=== PATIENT | male | born 1970 | race Caucasian/White ===

== ENCOUNTER 2017-08-22 09:37 | Inpatient (IN) | payer BC ==
--- NOTE | 2017-08-22 10:02 | ED PDOC ---
HPI:STROKE - Time Time: 10:01 - Historian Historian: Patient - Chief Complaint Chief Complaint: Numbness - Onset Date: 08/22/17 Time: 02:00 - Timing Timing: Currently Symptomatic - TPA Positive for Contraindication: Yes Reason tPA is not being Administered: out of window of thrombolytics and nih 0 - Notes: Notes:: Pt. with left forearm and hand numbness and tinlges and same in the left face. No weakness. No leg issues. No speech issues. No headache or dizziness. No nausea, vomit. No right issues. No chest pain or dyspnea. No pcp. States it was present when he woke up today at 615am. Last known well was 2am. NIHSS Stroke Scale - Date/Time Evaluation Performed Date Performed: 08/22/17 Time Performed: 10:00 When Was NIHSS Performed: Baseline - How Severe is the Stroke Level of Consciousness: 0=Alert LOC to Questions: 0=Both comments correct LOC to commands: 0=Obeys both correctly Best Gaze: 0=Normal Visual: 0=No visual loss Facial: 0=Normal Motor Arm - Left: 0=No drift Motor Arm - Right: 0=No drift Motor Leg - Left: 0=No drift Motor Leg - Right: 0=No drift Limb Ataxia: 0=Absent Sensory: 0=Normal Best Language: 0=No aphasia Dysarthia: 0=Normal articulation Extinction & Inattention (Neglect): 0=Normal, no object Score: 0 rTPA Inclusion/Exclusion - Refusal of Treatment Patient Refused Treatment: No - Inclusion Criteria for Altepase Patient is 18 years or Older: Yes The Clinical Diagnosis of Ischemic Stroke That is Causing a Potentially Disabling Neurological Deficit: No Time of Onset is Well Established to be Less Than 270 Minute Before Treatment Would Begin: No Risk/Benefit Discussed With Patient/Family Member Present: No - Exclusion Criteria for Altepase Uncontrolled Hypertension at Time of Treatment (Systolic BP above 185 or Diastolic BP above 110 mmHg): Yes Past Medical History Reviewed: Nursing Documentation, Vital Signs Vital Signs: Last Vital Signs Temp 97.2 F L 08/22/17 09:47 Pulse 108 H 08/22/17 09:47 Resp 22 08/22/17 09:47 BP 213/134 H 08/22/17 09:47 Pulse Ox 97 08/22/17 09:47 - Medical History PMH: No Chronic Diseases - Surgical History Surgical History: No Surg Hx - Family History Family History: States: Unknown Family Hx - Social History Current smoker - smoking cessation education provided: No Alcohol: None Drugs: Denies - Home Medications Home Medications: Ambulatory Orders Medication Instructions Recorded No Known Home Med 08/22/17 - Allergies Allergies/Adverse Reactions: Allergies Allergy/AdvReac Type Severity Reaction Status Date / Time No Known Allergies Allergy Verified 08/22/17 10:16 Review of Systems ROS Statement: Except As Marked, All Systems Reviewed And Found Negative Neurological: Positive for: Numbness Physical Exam - Reviewed Nursing Documentation Reviewed: Yes Vital Signs Reviewed: Yes - Physical Exam Appears: Positive for: Non-toxic, No Acute Distress Head Exam: Positive for: ATRAUMATIC, NORMAL INSPECTION, NORMOCEPHALIC Skin: Positive for: Normal Color, Warm, DRY Eye Exam: Positive for: EOMI, Normal appearance, PERRL ENT: Positive for: Normal ENT Inspection Neck: Positive for: Normal, Painless ROM Cardiovascular/Chest: Positive for: Regular Rate, Rhythm, Chest Non Tender. Negative for: Edema Respiratory: Positive for: CNT, Normal Breath Sounds Gastrointestinal/Abdominal: Positive for: Normal Exam, Bowel Sounds, Soft. Negative for: Tenderness Back: Positive for: Normal Inspection. Negative for: L CVA Tenderness, R CVA Tenderness Extremity: Positive for: Normal ROM. Negative for: Tenderness, Pedal Edema Neurologic/Psych: Positive for: Alert, high speed warper tender II-XII, Oriented. Negative for: Motor/Sensory Deficits, Aphasia, Facial Droop - Laboratory Results Result Diagrams: 08/22/17 10:21 08/22/17 10:21 Interpretation Of Abn Labs: 387 glucose - ECG ECG Rhythm: Positive for: Normal QRS, Sinus Rhythm, Nonspecific Changes O2 Sat by Pulse Oximetry: 97 Pulse Ox Interpretation: Normal - Radiology X-Ray: Read By Radiologist X-Ray Interpretation: No Acute Disease - CT Scan/US head Other Rad Studies (CT/US): Read By Radiologist Other Rad Interpretation: no acute - Progress ED Course And Treament: 1029: Spoke with Dr. Renner. Pt. not a candidate for thrombolytics. Wants further workup and treatment of bp with labatalol. 1233: Spoke with Dr. Parra. Will admit tele and give further orders when pt. reaches floor. Disposition - Clinical Impression Clinical Impression: CVA (cerebral vascular accident), Hyperglycemia, Hypertensive urgency - Patient ED Disposition Is Patient to be Admitted: Yes Counseled Patient/Family Regarding: Studies Performed, Diagnosis - Disposition Disposition Time: 12:00 Condition: FAIR - Pt Status Changed To: Hospital Disposition Of: Inpatient - Admit Certification Admit to Inpatient:: After my assessment, the patient will require hospitalization for at least two midnights. This is because of the severity of symptoms shown, intensity of services needed, and/or the medical risk in this patient being treated as an outpatient. - POA Present On Arrival: Poor Glycemic Control
[2017-08-22 10:31] LABS: BASO % 0.9 % (0.0-2.0); EOS % 0.8 % (0.0-4.0); HEMATOCRIT 45.3 % (35.0-51.0); LYMPH % 25.4 % (20.0-40.0); MEAN CELL VOLUME 80.6 fl (80.0-94.0); MEAN CORPUSCULAR HEMOGLOBIN 26.1 pg (27.0-31.0); MEAN CORPUSCULAR HGB CONC 32.4 g/dL (33.0-37.0); MEAN PLATELET VOLUME 9.6 fl (7.2-11.7); MONO # 0.4 K/uL (0.0-0.8); MONO % 9.1 % (0.0-10.0); NEUT # 2.5 K/uL (1.8-7.0); NEUT % 63.8 % (50.0-75.0); NRBC % 0.1 % (0.0-0.0); RED CELL DISTRIBUTION WIDTH 15.6 % (11.5-14.5); WHITE BLOOD COUNT 3.9 K/uL (4.8-10.8)
[2017-08-22 10:34] LABS: PARTIAL THROMBOPLASTIN TIME 34.2 Seconds (25.6-37.1)
[2017-08-22 10:45] LABS: ALB/GLOB RATIO 1.4 (1.0-2.1); ALKALINE PHOSPHATASE 98 U/L (38-126); ALT/SGPT 56 U/L (21-72); AST/SGOT 23 U/L (17-59); BILIRUBIN,TOTAL 1.1 mg/dl (0.2-1.3); BLOOD UREA NITROGEN 11 mg/dl (9-20); CALCIUM 9.1 mg/dL (8.4-10.2); CARBON DIOXIDE 27 mmol/L (22-30); CHLORIDE 102 mmol/L (98-107); CHOLESTEROL 219 mg/dL (0-199); GFR AFRICAN-AMERICAN > 60; GLUCOSE,RANDOM 387 mg/dL (75-110); POTASSIUM 3.7 MMOL/L (3.6-5.0); SODIUM 141 mmol/l (132-148); TOTAL PROTEIN 7.8 G/DL (6.3-8.2)
--- NOTE | 2017-08-22 10:57 | CT ---
PROCEDURE: CT HEAD WITHOUT CONTRAST. HISTORY: code stroke COMPARISON: None available. TECHNIQUE: Axial computed tomography images were obtained through the head/brain without intravenous contrast. Radiation dose: Total exam DLP = 772.4 mGy-cm. This CT exam was performed using one or more of the following dose reduction techniques: Automated exposure control, adjustment of the mA and/or kV according to patient size, and/or use of iterative reconstruction technique. FINDINGS: HEMORRHAGE: No intracranial hemorrhage. BRAIN: No mass effect or edema. No atrophy or chronic microvascular ischemic changes. VENTRICLES: Unremarkable. No hydrocephalus. CALVARIUM: Unremarkable. PARANASAL SINUSES: Unremarkable as visualized. No significant inflammatory changes. MASTOID AIR CELLS: Unremarkable as visualized. No inflammatory changes. OTHER FINDINGS: None. IMPRESSION: Normal CT of the Head. Findings conveyed to Dr. Hooks by Dr. Phillips at 10:53 a.m. on 08/22/2017.
[2017-08-22] MEDS ORDERED: Labetalol 5 mg/ml Inj 20ML IVP ONE (11:10)
--- NOTE | 2017-08-22 11:28 | RAD ---
HISTORY: stroke eval COMPARISON: Chest radiograph dated 06/23/2011. FINDINGS: LUNGS: Prominence of pulmonary vasculature may be secondary to AP technique and/or pulmonary vascular congestion. No focal consolidation. PLEURA: No significant pleural effusion identified, no pneumothorax apparent. CARDIOVASCULAR: Cardiac silhouette appears prominent, but this cannot be accurately assessed on an AP projection. OSSEOUS STRUCTURES: No significant abnormalities. VISUALIZED UPPER ABDOMEN: Normal. OTHER FINDINGS: None. IMPRESSION: Prominence of the pulmonary vasculature may be secondary to AP technique and/or pulmonary vascular congestion. No focal consolidation or pleural effusion.
[2017-08-22] MEDS ORDERED: Labetalol 5 mg/ml Inj 20ML IVP STA (12:34)
[2017-08-22] MEDS ORDERED: Pneumococcal 23-Valent Vaccine IM ONE (15:44)
[2017-08-22] MEDS ORDERED: Enoxaparin 40 mg Syringe SC SCH (21:00)
--- NOTE | 2017-08-22 22:00 | CP.PCM.CON ---
History of Present Illness - History of Present Illness History of Present Illness: - Chief Complaint Chief Complaint: Sensory Changes in the left side of the Face and in the Left Forearm - Onset Date: 08/22/17 Time: 02:00 - Timing Timing: Currently Symptomatic - TPA Positive for Contraindication: Yes Reason TPA is not being Administered: out of window of TPA - Notes: Notes:: Pt. with left forearm and hand numbness and tingling and same in the left face. No weakness. No leg issues. No speech issues. No headache or dizziness. No nausea, vomit. No right issues. No chest pain or dyspnea. History of feeling tired and having mild discomfort in his head, mild headache on and off since 3 months. No pcp. States it was present when he woke up today at 615am. Last known well was 2am. 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 He has a child 27 years old and is unmarried NIHSS Stroke Scale score is Zero - Date/Time Evaluation Performed Date Performed: 08/22/17 Time Performed: 10:00 When Was NIHSS Performed: Baseline - How Severe is the Stroke Level of Consciousness: 0=Alert LOC to Questions: 0=Both comments correct LOC to commands: 0=Obeys both correctly Best Gaze: 0=Normal Visual: 0=No visual loss Facial: 0=Normal Motor Arm - Left: 0=No drift Motor Arm - Right: 0=No drift Motor Leg - Left: 0=No drift Motor Leg - Right: 0=No drift Limb Ataxia: 0=Absent Sensory: 0=Normal Best Language: 0=No aphasia Dysarthia: 0=Normal articulation Extinction & Inattention (Neglect): 0=Normal, no object Score: 0 rTPA Inclusion/Exclusion - Refusal of Treatment Patient Refused Treatment: No - Inclusion Criteria for Altepase Patient is 18 years or Older: Yes The Clinical Diagnosis of Ischemic Stroke That is Causing a Potentially Disabling Neurological Deficit: No Time of Onset is Well Established to be Less Than 270 Minute Before Treatment Would Begin: No Risk/Benefit Discussed With Patient/Family Member Present: No - Exclusion Criteria for Altepase Uncontrolled Hypertension at Time of Treatment (Systolic BP above 185 or Diastolic BP above 110 mmHg): Yes Past Medical History Reviewed: Nursing Documentation, Vital Signs Vital Signs: Last Vital Signs Temp 97.2 F L 08/22/17 09:47 Pulse 108 H 08/22/17 09:47 Resp 22 08/22/17 09:47 BP 213/134 H 08/22/17 09:47 Pulse Ox 97 08/22/17 09:47 - Medical History PMH: No Chronic Diseases - Surgical History Surgical History: No Surg Hx - Family History Family History: States: Unknown Family Hx - Social History Current smoker - smoking cessation education provided: No Alcohol: None Drugs: Denies - Home Medications Home Medications: Ambulatory Orders Medication Instructions Recorded No Known Home Med 08/22/17 - Allergies Allergies/Adverse Reactions: Allergies Allergy/AdvReac Type Severity Reaction Status Date / Time No Known Allergies Allergy Verified 08/22/17 10:16 Review of Systems ROS Statement: Except As Marked, All Systems Reviewed And Found Negative Neurological: Positive for: Numbness Physical Exam - Reviewed Nursing Documentation Reviewed: Yes Vital Signs Reviewed: Yes - Physical Exam Appears: Positive for: Non-toxic, No Acute Distress Head Exam: Positive for: ATRAUMATIC, NORMAL INSPECTION, NORMOCEPHALIC Skin: Positive for: Normal Color, Warm, DRY Eye Exam: Positive for: EOMI, Normal appearance, PERRL ENT: Positive for: Normal ENT Inspection Neck: Positive for: Normal, Painless ROM Cardiovascular/Chest: Positive for: Regular Rate, Rhythm, Chest Non Tender. Negative for: Edema Respiratory: Positive for: CNT, Normal Breath Sounds Gastrointestinal/Abdominal: Positive for: Normal Exam, Bowel Sounds, Soft. Negative for: Tenderness Back: Positive for: Normal Inspection. Negative for: L CVA Tenderness, R CVA Tenderness Extremity: Positive for: Normal ROM. Negative for: Tenderness, Pedal Edema Neurologic/Psych: Positive for: Alert, sign board erector II-XII, Oriented. Negative for: Motor/Sensory Deficits, Aphasia, Facial Droop - Laboratory Results Interpretation Of Abn Labs: 387 glucose - ECG ECG Rhythm: Positive for: Normal QRS, Sinus Rhythm, Nonspecific Changes O2 Sat by Pulse Oximetry: 97 Pulse Ox Interpretation: Normal - Radiology X-Ray: Read By Radiologist X-Ray Interpretation: No Acute Disease - CT Scan/US head Other Rad Studies (CT/US): Read By Radiologist Other Rad Interpretation: no acute findings - Progress ED Course And Treament: 1029: Spoke with Dr. Renner. Pt. not a candidate for thrombolytics. Wants further workup and treatment of bp with labatalol. 1233: Spoke with Dr. Parra. Will admit telemetry and give further orders when pt. reaches floor. Disposition - Clinical Impression Clinical Impression: CVA (cerebral vascular accident), Hyperglycemia, Hypertensive urgency - Patient ED Disposition Is Patient to be Admitted: Yes Counseled Patient/Family Regarding: Studies Performed, Diagnosis - Disposition Disposition Time: 12:00 Condition: FAIR - Pt Status Changed To: Hospital Disposition Of: Inpatient - Admit Certification Admit to Inpatient:: After my assessment, the patient will require hospitalization for at least two midnights. This is because of the severity of symptoms shown, intensity of services needed, and/or the medical risk in this patient being treated as an outpatient. - POA Present On Arrival: Poor Glycemic Control Past Patient History - Past Medical History & Family History Past Medical History?: Yes - Past Social History Smoking Status: Never Smoked - CARDIAC Hx Cardiac Disorders: Yes Hx Hypertension: Yes (not on meds) - PULMONARY Hx Respiratory Disorders: No - NEUROLOGICAL Hx Neurological Disorder: No - HEENT Hx HEENT Problems: No - RENAL Hx Chronic Kidney Disease: No - ENDOCRINE/METABOLIC Hx Endocrine Disorders: No - HEMATOLOGICAL/ONCOLOGICAL Hx Blood Disorders: No Hx AIDS: No Hx Human Immunodeficiency Virus (HIV): No - INTEGUMENTARY Hx Dermatological Problems: No - MUSCULOSKELETAL/RHEUMATOLOGICAL Hx Musculoskeletal Disorders: No Hx Falls: No - GASTROINTESTINAL Hx Gastrointestinal Disorders: No - GENITOURINARY/GYNECOLOGICAL Hx Genitourinary Disorders: No - PSYCHIATRIC Hx Substance Use: No - SURGICAL HISTORY Hx Surgeries: No - ANESTHESIA Hx Anesthesia: Yes Hx Anesthesia Reactions: No Hx Malignant Hyperthermia: No Has any member of the family had a problem w/ anesthesia?: No Meds Allergies/Adverse Reactions: Allergies Allergy/AdvReac Type Severity Reaction Status Date / Time No Known Allergies Allergy Verified 08/22/17 10:16 - Medications Medications: Current Medications Aspirin (Aspirin Chewable) 81 mg PO DAILY [facility] Atorvastatin Calcium (Lipitor) 40 mg PO DAILY [facility] Chlorthalidone (Hygroton) 25 mg PO DAILY [facility] Enoxaparin Sodium (Lovenox) 40 mg SC DAILY [facility] PRN Reason: Protocol Labetalol HCl (Trandate) 200 mg PO Q6 PRN PRN Reason: Diastolic blood pressure Last Admin: 08/22/17 20:57 Dose: 200 mg Physical Exam - Neurological Exam Additional comments: Mental Status: Normal exam, awake, alert, oriented, normal memory, normal cognition, fluent coherent speech Cranial Nerves II to XII: Normal EOEM Pupils are equal reactive to light No facial Asymmetry Normal swallowing Central Tongue Motor: Normal Tone, power and Muscle bulk DTR 0/4 allover Toes are down going by plantar stimulation Positive straight leg raising test on the Right Sensory: No deficits on the face or the extremities or the rest of the body Cerebellar: Normal FNT Results - Vital Signs Recent Vital Signs: Last Vital Signs Temp 98.5 F 08/22/17 19:57 Pulse 79 08/22/17 20:57 Resp 20 08/22/17 19:57 BP 182/122 H 08/22/17 20:57 Pulse Ox 97 08/22/17 19:57 - Labs Result Diagrams: 08/22/17 10:21 08/22/17 10:21 Labs: Laboratory Results - last 24 hr 08/22/17 08/22/17 08/22/17 10:21 10:21 10:21 WBC 3.9 L RBC 5.62 Hgb 14.7 Hct 45.3 MCV 80.6 MCH 26.1 L MCHC 32.4 L RDW 15.6 H Plt Count 199 MPV 9.6 Neut % (Auto) 63.8 Lymph % (Auto) 25.4 [place] % (Auto) 9.1 Eos % (Auto) 0.8 Baso % (Auto) 0.9 Neut # 2.5 Lymph # 1.0 [place] # 0.4 Eos # 0.0 Baso # 0.0 PT INR APTT Sodium 141 Potassium 3.7 Chloride 102 Carbon Dioxide 27 Anion Gap 16 BUN 11 Creatinine 0.9 Est GFR ( Amer) > 60 Est GFR (Non-Af Amer) > 60 POC Glucose (mg/dL) Random Glucose 387 H Hemoglobin A1c 12.4 H Calcium 9.1 Total Bilirubin 1.1 AST 23 ALT 56 Alkaline Phosphatase 98 Troponin I 0.0290 Total Protein 7.8 Albumin 4.6 Globulin 3.2 Albumin/Globulin Ratio 1.4 Triglycerides 55 Cholesterol 219 H LDL Cholesterol Direct 126 HDL Cholesterol 64 Blood Type Blood Type Confirm Antibody Screen BBK History Checked 08/22/17 08/22/17 08/22/17 10:21 10:21 18:22 WBC RBC Hgb Hct MCV MCH MCHC RDW Plt Count MPV Neut % (Auto) Lymph % (Auto) [place] % (Auto) Eos % (Auto) Baso % (Auto) Neut # Lymph # [place] # Eos # Baso # PT 12.0 INR 1.1 APTT 34.2 Sodium Potassium Chloride Carbon Dioxide Anion Gap BUN Creatinine Est GFR ( Amer) Est GFR (Non-Af Amer) POC Glucose (mg/dL) 284 H Random Glucose Hemoglobin A1c Calcium Total Bilirubin AST ALT Alkaline Phosphatase Troponin I Total Protein Albumin Globulin Albumin/Globulin Ratio Triglycerides Cholesterol LDL Cholesterol Direct HDL Cholesterol Blood Type B POSITIVE Blood Type Confirm Antibody Screen Negative BBK History Checked No verified bt 08/22/17 19:04 WBC RBC Hgb Hct MCV MCH MCHC RDW Plt Count MPV Neut % (Auto) Lymph % (Auto) [place] % (Auto) Eos % (Auto) Baso % (Auto) Neut # Lymph # [place] # Eos # Baso # PT INR APTT Sodium Potassium Chloride Carbon Dioxide Anion Gap BUN Creatinine Est GFR ( Amer) Est GFR (Non-Af Amer) POC Glucose (mg/dL) Random Glucose Hemoglobin A1c Calcium Total Bilirubin AST ALT Alkaline Phosphatase Troponin I Total Protein Albumin Globulin Albumin/Globulin Ratio Triglycerides Cholesterol LDL Cholesterol Direct HDL Cholesterol Blood Type Blood Type Confirm B POSITIVE Antibody Screen BBK History Checked Assessment & Plan (1) CVA (cerebral vascular accident) Assessment and Plan: TIA R/O CVA Headache due to HTN and stress. Headache precautions were explained to him. Unlikely seizures as seizures don't last that long for many hours Status: Acute Comment: R/O TIA (2) Hyperglycemia Assessment and Plan: Needs Control Status: Acute (3) Hypertensive urgency Assessment and Plan: Very high BP might cause his current symptoms and His TIA, with his High Blood sugar. I discussed the treatment with the ER Physician and we agreed to control his BP using Labetolol and to reduce it slowly and gradually. Status: Acute
[2017-08-23 05:39] LABS: THYROID STIMULATING HORMONE 1.57 mIU/ML (0.46-4.68)
[2017-08-23] MEDS ORDERED: Dextrose 50% SYRINGE Inj (50 ml) IV PRN (07:21)
[2017-08-23] MEDS ORDERED: Glucagon Recombinant 1 mg Inj IM PRN (07:21)
--- NOTE | 2017-08-23 07:52 | CARD ---
APPROVED REPORT EKG Measurement Heart [id number] <Conclusion> Sinus tachycardia Possible Left atrial enlargement ST & T wave abnormality, consider lateral ischemia Abnormal ECG
--- NOTE | 2017-08-23 07:56 | CP.PCM.HP ---
History of Present Illness - History of Present Illness History of Present Illness: 47 year old male with no past medical history presented with complaints of left facial tingling and left upper extremity tingling. No motor weakness or arm heaviness. He states he has never had similar episode in the past. No change in diet. Last thing he ate was [employer]. No headache, dizziness, chest pain or tightness,, nausea, vomiting, abdominal pain. He does not take any medications. He has not seen a physician in years. He states he has checked his blood pressure at a friends house recently and admits it was elevated but he did not seek care. He is not physically active and does not do exercise. Patient denies recent illness. This morning the patient reports he still has some tingling. 12 point review of systems otherwise negative. No PMD PMH : none Medications: None Surgical hx: hernia repair as a child Social: denies tobacco, etoh, illicit drugs. Present on Admission - Present on Admission Any Indicators Present on Admission: No History of Uncontrolled Diabetes: No Review of Systems - Constitutional Constitutional: absent: Anorexia, Headache, Weakness - EENT Eyes: absent: Blurred Vision, Spots in Vision Ears: absent: Dizziness Nose/Mouth/Throat: absent: Nasal Congestion, Nasal Discharge, Tongue Swelling, Facial Pain - Cardiovascular Cardiovascular: absent: Chest Pain, Dyspnea, Dyspnea on Exertion, Palpitations, Rapid Heart Rate, Slow Heart Rate, Syncope - Respiratory Respiratory: Snoring. absent: Cough, Dyspnea - Gastrointestinal Gastrointestinal: absent: Abdominal Pain, Diarrhea, Dysphagia, Nausea, Vomiting - Musculoskeletal Musculoskeletal: Tingling (left face, left arm). absent: Abnormal Gait, Neck Pain - Neurological Neurological: Tingling. absent: Abnormal Gait, Dizziness - Psychiatric Psychiatric: absent: Anxiety, Depression - Endocrine Endocrine: absent: Change in Body Appearance, Excessive Sweating - Hematologic/Lymphatic Hematologic: absent: Easy Bruising Past Patient History - Past Medical History & Family History Past Medical History?: Yes - Past Social History Smoking Status: Never Smoked - CARDIAC Hx Cardiac Disorders: Yes Hx Hypertension: Yes (not on meds) - PULMONARY Hx Respiratory Disorders: No - NEUROLOGICAL Hx Neurological Disorder: No - HEENT Hx HEENT Problems: No - RENAL Hx Chronic Kidney Disease: No - ENDOCRINE/METABOLIC Hx Endocrine Disorders: No - HEMATOLOGICAL/ONCOLOGICAL Hx Blood Disorders: No Hx AIDS: No Hx Human Immunodeficiency Virus (HIV): No - INTEGUMENTARY Hx Dermatological Problems: No - MUSCULOSKELETAL/RHEUMATOLOGICAL Hx Musculoskeletal Disorders: No Hx Falls: No - GASTROINTESTINAL Hx Gastrointestinal Disorders: No - GENITOURINARY/GYNECOLOGICAL Hx Genitourinary Disorders: No - PSYCHIATRIC Hx Substance Use: No - SURGICAL HISTORY Hx Surgeries: No - ANESTHESIA Hx Anesthesia: Yes Hx Anesthesia Reactions: No Hx Malignant Hyperthermia: No Has any member of the family had a problem w/ anesthesia?: No Meds Home Medications: Home Medication List Medication Instructions Recorded Confirmed Type Aspirin [Aspirin Chewable] 81 mg PO DAILY #30 chew 08/23/17 Rx Atorvastatin [Lipitor] 40 mg PO DAILY #30 tab 08/23/17 Rx Chlorthalidone [Hygroton] 25 mg PO DAILY #30 tab 08/23/17 Rx metFORMIN [glucOPHAGE] 500 mg PO BID #60 tab 08/23/17 Rx Allergies/Adverse Reactions: Allergies Allergy/AdvReac Type Severity Reaction Status Date / Time No Known Allergies Allergy Verified 08/22/17 10:16 Physical Exam - Constitutional Appears: No Acute Distress (obese) - Head Exam Head Exam: ATRAUMATIC, NORMAL INSPECTION, NORMOCEPHALIC - ENT Exam ENT Exam: Mucous Membranes Moist - Neck Exam Additional comments: acanthosis nigricans on neck - Respiratory Exam Respiratory Exam: Clear to Auscultation Bilateral, NORMAL BREATHING PATTERN - Cardiovascular Exam Cardiovascular Exam: REGULAR RHYTHM, +S1, +S2 - GI/Abdominal Exam GI & Abdominal Exam: Normal Bowel Sounds, Soft. absent: Tenderness - Rectal Exam Rectal Exam: Deferred - Extremities Exam Extremities exam: Negative for: pedal edema, tenderness - Neurological Exam Neurological exam: Alert, CN II-XII Intact, Normal Gait, Oriented x3 - Psychiatric Exam Psychiatric exam: Normal Affect, Normal Mood - Skin Skin Exam: Dry, Intact, Normal Color, Warm Results - Vital Signs Recent Vital Signs: Last Vital Signs Temp 98.5 F 08/23/17 05:12 Pulse 78 08/23/17 05:12 Resp 18 08/23/17 05:12 BP 126/79 08/23/17 05:12 Pulse Ox 98 08/23/17 05:12 - Labs Result Diagrams: 08/22/17 10:21 08/22/17 10:21 Labs: Laboratory Results - last 24 hr 08/22/17 08/22/17 08/22/17 10:21 10:21 10:21 WBC 3.9 L RBC 5.62 Hgb 14.7 Hct 45.3 MCV 80.6 MCH 26.1 L MCHC 32.4 L RDW 15.6 H Plt Count 199 MPV 9.6 Neut % (Auto) 63.8 Lymph % (Auto) 25.4 [place] % (Auto) 9.1 Eos % (Auto) 0.8 Baso % (Auto) 0.9 Neut # 2.5 Lymph # 1.0 [place] # 0.4 Eos # 0.0 Baso # 0.0 ESR PT INR APTT Sodium 141 Potassium 3.7 Chloride 102 Carbon Dioxide 27 Anion Gap 16 BUN 11 Creatinine 0.9 Est GFR ( Amer) > 60 Est GFR (Non-Af Amer) > 60 POC Glucose (mg/dL) Random Glucose 387 H Hemoglobin A1c 12.4 H Uric Acid Calcium 9.1 Total Bilirubin 1.1 AST 23 ALT 56 Alkaline Phosphatase 98 Troponin I 0.0290 Total Protein 7.8 Albumin 4.6 Globulin 3.2 Albumin/Globulin Ratio 1.4 Triglycerides 55 Cholesterol 219 H LDL Cholesterol Direct 126 HDL Cholesterol 64 TSH 3rd Generation Blood Type Blood Type Confirm Antibody Screen BBK History Checked 08/22/17 08/22/17 08/22/17 10:21 10:21 18:22 WBC RBC Hgb Hct MCV MCH MCHC RDW Plt Count MPV Neut % (Auto) Lymph % (Auto) [place] % (Auto) Eos % (Auto) Baso % (Auto) Neut # Lymph # [place] # Eos # Baso # ESR PT 12.0 INR 1.1 APTT 34.2 Sodium Potassium Chloride Carbon Dioxide Anion Gap BUN Creatinine Est GFR ( Amer) Est GFR (Non-Af Amer) POC Glucose (mg/dL) 284 H Random Glucose Hemoglobin A1c Uric Acid Calcium Total Bilirubin AST ALT Alkaline Phosphatase Troponin I Total Protein Albumin Globulin Albumin/Globulin Ratio Triglycerides Cholesterol LDL Cholesterol Direct HDL Cholesterol TSH 3rd Generation Blood Type B POSITIVE Blood Type Confirm Antibody Screen Negative BBK History Checked No verified bt 08/22/17 08/22/17 08/23/17 19:04 22:40 04:30 WBC RBC Hgb Hct MCV MCH MCHC RDW Plt Count MPV Neut % (Auto) Lymph % (Auto) [place] % (Auto) Eos % (Auto) Baso % (Auto) Neut # Lymph # [place] # Eos # Baso # ESR 13 PT INR APTT Sodium Potassium Chloride Carbon Dioxide Anion Gap BUN Creatinine Est GFR ( Amer) Est GFR (Non-Af Amer) POC Glucose (mg/dL) 275 H Random Glucose Hemoglobin A1c Uric Acid Calcium Total Bilirubin AST ALT Alkaline Phosphatase Troponin I Total Protein Albumin Globulin Albumin/Globulin Ratio Triglycerides Cholesterol LDL Cholesterol Direct HDL Cholesterol TSH 3rd Generation Blood Type Blood Type Confirm B POSITIVE Antibody Screen BBK History Checked 08/23/17 08/23/17 04:30 05:18 WBC RBC Hgb Hct MCV MCH MCHC RDW Plt Count MPV Neut % (Auto) Lymph % (Auto) [place] % (Auto) Eos % (Auto) Baso % (Auto) Neut # Lymph # [place] # Eos # Baso # ESR PT INR APTT Sodium Potassium Chloride Carbon Dioxide Anion Gap BUN Creatinine Est GFR ( Amer) Est GFR (Non-Af Amer) POC Glucose (mg/dL) 256 H Random Glucose Hemoglobin A1c Uric Acid 6.0 Calcium Total Bilirubin AST ALT Alkaline Phosphatase Troponin I Total Protein Albumin Globulin Albumin/Globulin Ratio Triglycerides Cholesterol LDL Cholesterol Direct HDL Cholesterol TSH 3rd Generation 1.57 Blood Type Blood Type Confirm Antibody Screen BBK History Checked Assessment & Plan (1) CVA (cerebral vascular accident) Assessment and Plan: 47 year old male admitted for hypertensive urgency with left facial tingling and left upper extremity tingling likely due to multiple factors. Patient is obese has severely uncontrolled blood pressure and diabetes. Given HTN and body habitus, he likely has underlying sleep apnea. Would benefit from outpatient polysomnography. BP remains uncontrolled although improved, DM remains uncontrolled Head CT was unremarkable, MRI Brain: acute/subacute lacune identified at the right thalamus. Neurology: Dr. Renner, recommendations appreciated. Cardiology: Dr. Alexander, recommendations appreciated. Patient requires strict BP and glycemic control. Started on Lipitor and Aspirin, JULIO CESAR inhibitor. Start Plavix. Speech/PT/OT Case D/w Dr. Parra and Dr. Renner. Status: Acute (2) Uncontrolled hypertension Assessment and Plan: Patient started on chlorthalidone 25mg. Medications adjusted by Cardiology, Start Lisinopril 10mg, HCTZ 12.5mg Patient requires strict blood control. Will recheck BP this afternoon, if remains elevated will adjust medications For pt to be discharged safely BP must be less than 130/80 Status: Acute (3) Uncontrolled type 2 diabetes mellitus with hyperglycemia Assessment and Plan: Endocrinology consult given newly diagnosed severely uncontrolled diabetes, awaiting recommendations. He will likely require insulin given HGA1C:12.4. Accuchecks and sliding scale insulin Julio Cesar/HCTZ for BP control and renal protection UA pending for proteinuria assessment diabetic diet Metformin, tierauvia levemir 14 units qhs Status: Acute (4) DVT prophylaxis Assessment and Plan: lovenox Status: Acute (5) Hypertensive urgency Status: Resolved (6) Obesity (BMI 30.0-34.9) Status: Chronic (7) Hyperlipidemia Assessment and Plan: on statin Status: Acute
[2017-08-23] MEDS: Insulin Regular 100 units/ml SC SCH ×4 (08:16→23:44)
[2017-08-23 08:34] LABS: TROPONIN I 0.039 ng/mL (0.00-0.120)
--- NOTE | 2017-08-23 09:32 | MRI ---
PROCEDURE: MRI BRAIN WITHOUT CONTRAST HISTORY: R/O CVA, R/O TIA COMPARISON: Unenhanced head CT 08/22/2017. TECHNIQUE: Multiplanar, multisequence MR images of the brain were obtained without intravenous contrast enhancement. FINDINGS: HEMORRHAGE: None DWI: There is a small area of restricted diffusion at the right thalamus anteriorly compatible with an acute or subacute lacunar infarct. BRAIN PARENCHYMA: There are occasional white matter long TR hyperintensities identified at the bilateral frontal and parietal subcortical and centrum semiovale white matter which appears to spare the corpus callosum. Posterior fossa contents appear uninvolved including the brainstem. Etiology this pattern is uncertain. Consider possible hypertensive or migraine related effect with other etiologies including demyelination, vasculitis and relatively lengthy additional differential diagnostic list as potential etiologies. The current appearance is nonspecific. Follow-up gadolinium enhanced MRI is recommended for additional characterization. There is no suspicious extra-axial fluid collection identified. VENTRICLES: Unremarkable. No hydrocephalus. CRANIUM: Unremarkable. ORBITS: Grossly unremarkable. PARANASAL SINUSES/MASTOIDS: Clear VASCULAR SYSTEM: Skull base flow voids intact. OTHER FINDINGS: None. IMPRESSION: 1. Acute/subacute lacune is identified at the right thalamus. 2. Mild white-matter changes are seen at the bilateral frontal and parietal lobes appear to spare the corpus callosum. Please see differential diagnosis listed above. Etiology is unclear at this time. Follow-up gadolinium enhanced MRI is advised for additional characterization.
--- NOTE | 2017-08-23 10:33 | CP.PCM.CON ---
History of Present Illness - History of Present Illness History of Present Illness: This 47-year-old chronically overweight -[place] male came into the emergency room complaining of abrupt onset of numbness on the left side of his face and left arm. This was not accompanied by any motor deficit. He denies any diplopia or speech deficit. There is no ataxia nausea or vomiting. The numbness on the left side of the face and the arm still persist 24 hours later. The patient had not seen a physician in number of years and denies being aware of abnormal blood pressure readings are abnormal blood sugar readings. His mother was a diabetic and hypertensive. The patient himself has never been a smoker but has had a semisedentary lifestyle. He can climb a flight of stairs but he cannot say if he is able to walk 8-10 blocks since he has not done this for a number of years. He denies any shortness of breath or chest pain unconnected with physical activity which as mentioned earlier is fairly restricted. The patient denies any recent weight gain. The patient does admit to poor dietary habits and admits to eating salty food and food rich in starch. The patient does never reported any chest pain or sudden shortness of breath and he denies any pedal edema or claudication. The patient admits to snoring at night. On physical examination this is a young overweight -[place] male alert awake oriented and afebrile. His heart rate was 72 bpm and regular. His blood pressure was 168/100 mmHg. His jugular venous pressure was not elevated. There was no edema over his lower extremity. The pedal pulses were well felt. There were no carotid bruits. His extremities were warm and his nailbeds were pink. There was no central or peripheral cyanosis. The apex was not palpable. The first and second heart sounds were normal. There was no murmur no gallop no rales. His abdomen was soft liver and spleen are not palpable. There was no motor deficit on the right or left side. Deep tendon reflexes were normal. His electrocardiogram showed sinus rhythm with nonspecific ST-T changes. No Q waves were detected. His echocardiogram shows evidence of moderate left ventricular hypertrophy with preserved left ventricular systolic function and a depressed diastolic compliance. The left atrium was mildly enlarged. His lab data shows normal hemoglobin and hematocrit. Normal electrolytes. Normal BUN/creatinine. His lipid profile was noted. His A1c exceeded 12%. Impression: Possible cerebrovascular accident in a patient with newly diagnosed hypertension and diabetes mellitus. Exogenous obesity. Possible obstructive sleep apnea. The patient was seen by a dietitian and he has received dietary counseling. I have started him on an DEUCE inhibitor and hydrochlorothiazide. Patient awaits the result of MRI of the brain. The patient should have a sleep study to rule out obstructive sleep apnea. If positive needs to have this issue addressed. I have emphasized weight loss and regular walking. I have requested a urinalysis to evaluate for proteinuria. Past Patient History - Past Medical History & Family History Past Medical History?: Yes - Past Social History Smoking Status: Never Smoked - CARDIAC Hx Cardiac Disorders: Yes Hx Hypertension: Yes (not on meds) - PULMONARY Hx Respiratory Disorders: No - NEUROLOGICAL Hx Neurological Disorder: No - HEENT Hx HEENT Problems: No - RENAL Hx Chronic Kidney Disease: No - ENDOCRINE/METABOLIC Hx Endocrine Disorders: No - HEMATOLOGICAL/ONCOLOGICAL Hx Blood Disorders: No Hx AIDS: No Hx Human Immunodeficiency Virus (HIV): No - INTEGUMENTARY Hx Dermatological Problems: No - MUSCULOSKELETAL/RHEUMATOLOGICAL Hx Musculoskeletal Disorders: No Hx Falls: No - GASTROINTESTINAL Hx Gastrointestinal Disorders: No - GENITOURINARY/GYNECOLOGICAL Hx Genitourinary Disorders: No - PSYCHIATRIC Hx Substance Use: No - SURGICAL HISTORY Hx Surgeries: No - ANESTHESIA Hx Anesthesia: Yes Hx Anesthesia Reactions: No Hx Malignant Hyperthermia: No Has any member of the family had a problem w/ anesthesia?: No Meds Home Medications: Home Medication List Medication Instructions Recorded Confirmed Type Aspirin [Aspirin Chewable] 81 mg PO DAILY #30 chew 08/23/17 Rx Atorvastatin [Lipitor] 40 mg PO DAILY #30 tab 08/23/17 Rx Chlorthalidone [Hygroton] 25 mg PO DAILY #30 tab 08/23/17 Rx metFORMIN [glucOPHAGE] 500 mg PO BID #60 tab 08/23/17 Rx Allergies/Adverse Reactions: Allergies Allergy/AdvReac Type Severity Reaction Status Date / Time No Known Allergies Allergy Verified 08/22/17 10:16 - Medications Medications: Current Medications Aspirin (Aspirin Chewable) 81 mg PO DAILY [facility] Last Admin: 08/23/17 08:12 Dose: 81 mg Atorvastatin Calcium (Lipitor) 40 mg PO DAILY [facility] Last Admin: 08/23/17 08:12 Dose: 40 mg Chlorthalidone (Hygroton) 25 mg PO DAILY [facility] Last Admin: 08/23/17 08:12 Dose: 25 mg Dextrose (Dextrose 50% Inj) 0 ml IV STAT PRN; Protocol PRN Reason: Hypoglycemia Protocol Dextrose (Glutose 15) 0 gm PO ONCE PRN; Protocol PRN Reason: Hypoglycemia Protocol Enoxaparin Sodium (Lovenox) 40 mg SC DAILY@2300 [facility] PRN Reason: Protocol Glucagon (Glucagen Diagnostic Kit) 0 mg IM STAT PRN; Protocol PRN Reason: Hypoglycemia Protocol Insulin Human Regular (Humulin R) 0 units SC ACHS [facility] PRN Reason: Protocol Last Admin: 08/23/17 08:16 Dose: 3 units Labetalol HCl (Trandate) 200 mg PO Q6 PRN PRN Reason: Diastolic blood pressure Last Admin: 08/22/17 20:57 Dose: 200 mg Lisinopril (Zestril) 10 mg PO DAILY [facility] Results - Vital Signs Recent Vital Signs: Last Vital Signs Temp 98.3 F 08/23/17 08:00 Pulse 68 08/23/17 08:00 Resp 20 08/23/17 08:00 BP 152/91 H 08/23/17 08:00 Pulse Ox 96 08/23/17 08:00 - Labs Result Diagrams: 08/22/17 10:21 08/22/17 10:21 Labs: Laboratory Results - last 24 hr 08/22/17 08/22/17 08/22/17 10:21 10:21 10:21 WBC 3.9 L RBC 5.62 Hgb 14.7 Hct 45.3 MCV 80.6 MCH 26.1 L MCHC 32.4 L RDW 15.6 H Plt Count 199 MPV 9.6 Neut % (Auto) 63.8 Lymph % (Auto) 25.4 [place] % (Auto) 9.1 Eos % (Auto) 0.8 Baso % (Auto) 0.9 Neut # 2.5 Lymph # 1.0 [place] # 0.4 Eos # 0.0 Baso # 0.0 ESR PT INR APTT Sodium 141 Potassium 3.7 Chloride 102 Carbon Dioxide 27 Anion Gap 16 BUN 11 Creatinine 0.9 Est GFR ( Amer) > 60 Est GFR (Non-Af Amer) > 60 POC Glucose (mg/dL) Random Glucose 387 H Hemoglobin A1c 12.4 H Uric Acid Calcium 9.1 Total Bilirubin 1.1 AST 23 ALT 56 Alkaline Phosphatase 98 Troponin I 0.0290 Total Protein 7.8 Albumin 4.6 Globulin 3.2 Albumin/Globulin Ratio 1.4 Triglycerides 55 Cholesterol 219 H LDL Cholesterol Direct 126 HDL Cholesterol 64 TSH 3rd Generation Blood Type Blood Type Confirm Antibody Screen 08/22/17 08/22/17 08/22/17 10:21 10:21 18:22 WBC RBC Hgb Hct MCV MCH MCHC RDW Plt Count MPV Neut % (Auto) Lymph % (Auto) [place] % (Auto) Eos % (Auto) Baso % (Auto) Neut # Lymph # [place] # Eos # Baso # ESR PT 12.0 INR 1.1 APTT 34.2 Sodium Potassium Chloride Carbon Dioxide Anion Gap BUN Creatinine Est GFR ( Amer) Est GFR (Non-Af Amer) POC Glucose (mg/dL) 284 H Random Glucose Hemoglobin A1c Uric Acid Calcium Total Bilirubin AST ALT Alkaline Phosphatase Troponin I Total Protein Albumin Globulin Albumin/Globulin Ratio Triglycerides Cholesterol LDL Cholesterol Direct HDL Cholesterol TSH 3rd Generation Blood Type B POSITIVE Blood Type Confirm Antibody Screen Negative 08/22/17 08/22/17 08/23/17 19:04 22:40 04:30 WBC RBC Hgb Hct MCV MCH MCHC RDW Plt Count MPV Neut % (Auto) Lymph % (Auto) [place] % (Auto) Eos % (Auto) Baso % (Auto) Neut # Lymph # [place] # Eos # Baso # ESR 13 PT INR APTT Sodium Potassium Chloride Carbon Dioxide Anion Gap BUN Creatinine Est GFR ( Amer) Est GFR (Non-Af Amer) POC Glucose (mg/dL) 275 H Random Glucose Hemoglobin A1c Uric Acid Calcium Total Bilirubin AST ALT Alkaline Phosphatase Troponin I Total Protein Albumin Globulin Albumin/Globulin Ratio Triglycerides Cholesterol LDL Cholesterol Direct HDL Cholesterol TSH 3rd Generation Blood Type Blood Type Confirm B POSITIVE Antibody Screen 08/23/17 08/23/17 08/23/17 04:30 05:18 07:15 WBC RBC Hgb Hct MCV MCH MCHC RDW Plt Count MPV Neut % (Auto) Lymph % (Auto) [place] % (Auto) Eos % (Auto) Baso % (Auto) Neut # Lymph # [place] # Eos # Baso # ESR PT INR APTT Sodium Potassium Chloride Carbon Dioxide Anion Gap BUN Creatinine Est GFR ( Amer) Est GFR (Non-Af Amer) POC Glucose (mg/dL) 256 H Random Glucose Hemoglobin A1c Uric Acid 6.0 Calcium Total Bilirubin AST ALT Alkaline Phosphatase Troponin I 0.0390 Total Protein Albumin Globulin Albumin/Globulin Ratio Triglycerides 44 Cholesterol 193 LDL Cholesterol Direct 117 HDL Cholesterol 52 TSH 3rd Generation 1.57 Blood Type Blood Type Confirm Antibody Screen
--- NOTE | 2017-08-23 11:16 | CARD ---
APPROVED REPORT EXAM: Two-dimensional and M-mode echocardiogram with Doppler and color Doppler. Other Information Quality : GoodRhythm : NSR INDICATION CVA/TIA Hypertension/HCVD 2D DIMENSIONS IVSd1.51 (0.7-1.1cm)LVDd4.89 (3.9-5.9cm) LVOT Diameter2.60 (1.8-2.4cm)PWd1.50 (0.7-1.1cm) IVSs1.49 (0.8-1.2cm)LVDs3.79 (2.5-4.0cm) FS (%) 22.5 %PWs1.88 (0.8-1.2cm) M-Mode DIMENSIONS Left Atrium (MM)4.94 (2.5-4.0cm)IVSd1.59 (0.7-1.1cm) Aortic Root2.69 (2.2-3.7cm)LVDd4.63 (4.0-5.6cm) Aortic Cusp Exc.1.16 (1.5-2.0cm)PWd1.50 (0.7-1.1cm) IVSs1.59 cmFS (%) 9 % LVDs4.22 (2.0-3.8cm)PWs1.91 cm Mitral Valve MV E Cnwalhhw73.1cm/sMV DECEL [id number] A Cldsdubk79.5cm/s MV CNZ32azH/A ratio5.0MVA (PHT)4.58cm2 TDI Lateral E' Peak V7.09cm/sMedial E' Peak V7.66cm/sE/Lateral E'13.1 E/Medial E'12.2 Pulmonary Valve PV Peak Gxlilesf24.0cm/s LEFT VENTRICLE The left ventricle is normal size. There is mild to moderate concentric left ventricular hypertrophy. Left ventricle systolic function is low normal. The Ejection Fraction is 50-55%. There is normal LV segmental wall motion. Transmitral Doppler flow pattern is Grade II-pseudonormal filling dynamics. RIGHT VENTRICLE The right ventricle is normal size. There is normal right ventricular wall thickness. The right ventricular systolic function is normal. ATRIA The left atrium is mildly dilated. The right atrium size is normal. AORTIC VALVE The aortic valve is normal in structure. No aortic regurgitation is present. There is no aortic valvular stenosis. MITRAL VALVE The mitral valve is normal in structure. There is no evidence of mitral valve prolapse. There is no mitral valve stenosis. Mitral regurgitation is mild. TRICUSPID VALVE The tricuspid valve is normal in structure. There is no tricuspid valve regurgitation noted. PULMONIC VALVE The pulmonary valve is normal in structure. There is no pulmonic valvular regurgitation. GREAT VESSELS The aortic root is normal in size. The IVC is normal in size and collapses >50% with inspiration. PERICARDIAL EFFUSION The pericardium appears normal. <Conclusion> The left ventricle is normal size. There is mild to moderate concentric left ventricular hypertrophy. There is normal LV segmental wall motion. Left ventricle systolic function is low normal. The Ejection Fraction is 50-55%. Transmitral Doppler flow pattern is Grade II-pseudonormal filling dynamics.
--- NOTE | 2017-08-23 13:20 | US ---
PROCEDURE: Bilateral duplex Doppler carotid arterial ultrasound examination HISTORY: R/O CVA COMPARISON: Not available TECHNIQUE: Ultrasound examination of the carotid arteries and vertebral arteries was performed utilizing a linear array color Doppler transducer. FINDINGS: Right carotid artery: There is intimal thickening seen throughout the common carotid artery. There is no significant atheromatous plaque appreciated. Peak systolic velocity measurements: CCA: 55.5 cm/sec ICA: 46.2 ICA/CCA peak systolic velocity ratio: 0.8 Antegrade flow demonstrated in vertebral artery Left carotid artery: There is intimal thickening seen throughout the common carotid artery. There is mild atheromatous plaque circumferentially about the carotid bulb. Peak systolic velocity measurements: CCA: 76.8 cm/sec ICA: 73.8 ICA/CCA peak systolic velocity ratio: 1.0 There is antegrade flow demonstrated in the vertebral artery IMPRESSION: No hemodynamically significant carotid arterial stenosis bilaterally (less than 50%).
[2017-08-23 17:15] LABS: RBC URINE < 1 /hpf (0-3); URINE BILIRUBIN NEGATIVE (NEGATIVE); URINE BLOOD NEGATIVE (NEGATIVE); URINE COLOR YELLOW (YELLOW); URINE GLUCOSE (UA) NEG (Normal); URINE KETONE NEGATIVE (NEGATIVE); URINE LEUKOCYTE ESTERASE NEG Leu/uL (Negative); URINE PROTEIN NEGATIVE (NEGATIVE); URINE UROBILINOGEN 0.2-1.0 mg/dL (0.2-1.0); WBC URINE < 1 /hpf (0-5)
--- NOTE | 2017-08-23 21:54 | CP.PCM.PN ---
Subjective - Date & Time of Evaluation Date of Evaluation: 08/23/17 Time of Evaluation: 20:10 - Subjective Subjective: IMPRESSION MRI Brain: 1. Acute/subacute lacune is identified at the right thalamus. 2. Mild white-matter changes are seen at the bilateral frontal and parietal lobes appear to spare the corpus callosum. Please see differential diagnosis listed above. Etiology is unclear at this time. Follow-up gadolinium enhanced MRI is advised for additional characterization. Patient has negative Carotid Doppler. his labs are seen His blood Pressure needs to be controlled His Blood sugar needs to controlled. An Endo consult is called. Objective - Vital Signs/Intake and Output Vital Signs (last 24 hours): Temp Pulse Resp BP Pulse Ox 98.2 F 74 14 134/79 96 08/23/17 19:45 08/23/17 19:45 08/23/17 19:45 08/23/17 19:45 08/23/17 19:45 - Medications Medications: Current Medications Aspirin (Aspirin Chewable) 81 mg PO DAILY [facility] Last Admin: 08/23/17 08:12 Dose: 81 mg Atorvastatin Calcium (Lipitor) 40 mg PO DAILY [facility] Last Admin: 08/23/17 08:12 Dose: 40 mg Clopidogrel Bisulfate (Plavix) 75 mg PO DAILY [facility] Dextrose (Dextrose 50% Inj) 0 ml IV STAT PRN; Protocol PRN Reason: Hypoglycemia Protocol Dextrose (Glutose 15) 0 gm PO ONCE PRN; Protocol PRN Reason: Hypoglycemia Protocol Enoxaparin Sodium (Lovenox) 40 mg SC DAILY@2300 [facility] PRN Reason: Protocol Glipizide (Glucotrol) 10 mg PO BIDAC [facility] Last Admin: 08/23/17 16:57 Dose: 10 mg Glucagon (Glucagen Diagnostic Kit) 0 mg IM STAT PRN; Protocol PRN Reason: Hypoglycemia Protocol Hydrochlorothiazide (Microzide) 12.5 mg PO DAILY [facility] Last Admin: 08/23/17 12:07 Dose: 12.5 mg Insulin Detemir (Levemir) 14 units SC HS [facility] Insulin Human Regular (Humulin R) 0 units SC ACHS [facility] PRN Reason: Protocol Last Admin: 08/23/17 16:57 Dose: Not Given Labetalol HCl (Trandate) 200 mg PO Q6 PRN PRN Reason: Diastolic blood pressure Last Admin: 08/22/17 20:57 Dose: 200 mg Lisinopril (Zestril) 10 mg PO DAILY [facility] Last Admin: 08/23/17 12:06 Dose: 10 mg Metformin HCl (Glucophage) 850 mg PO BIDWM [facility] Last Admin: 08/23/17 16:56 Dose: 850 mg Sitagliptin Phosphate (Januvia) 100 mg PO DAILY [facility] - Labs Labs: 08/22/17 10:21 08/22/17 10:21 PT 12.0 Seconds (9.8-13.1) 08/22/17 10:21 INR 1.1 (0.9-1.2) 08/22/17 10:21 APTT 34.2 Seconds (25.6-37.1) 08/22/17 10:21 Assessment and Plan (1) CVA (cerebral vascular accident) Status: Acute (2) Hyperglycemia Status: Acute (3) Hypertensive urgency Status: Resolved
[2017-08-23] MEDS ORDERED: Insulin Detemir 100 Units/ml Inj SC SCH (22:00)
[2017-08-23] MEDS ORDERED: Enoxaparin 40 mg Syringe SC SCH (23:00)
[2017-08-24 00:31] VITALS: RESP 18
--- NOTE | 2017-08-24 03:01 | CON ---
DATE: ENDOCRINOLOGY CONSULTATION LOCATION: Room 418, bed 1. HISTORY OF PRESENT ILLNESS: This is a 47-year-old male with known history of type 2 diabetes presenting here with marked hyperglycemic accelerations and associated generalized body weakness and supervening dizziness and lightheadedness and is now being referred for diabetic evaluation and management. PAST MEDICAL HISTORY: As mentioned above, history of type 2 diabetes, currently on metformin given as 500 mg b.i.d., but apparently he discontinued the medication many months ago with no recent medical followup with his primary physician; history of hypertension and dyslipidemia. FAMILY HISTORY: Positive for diabetes and hypertension. SOCIAL HISTORY: Patient has supportive family. No known substance use. REVIEW OF SYSTEMS: As mentioned above. Admits to generalized body weakness with progressively worsening dizziness and lightheadedness, worse on the day of admission. No chest pains or palpitations or PND. His oral intake has been variable with nausea, dyspepsia, and vague upper abdominal pains. Also admits to marked polyuria, nocturia, and polydipsia as noted. Neurologically, he admits to left facial tingling and numbness with lower extremity paresthesias, especially nocturnally. PHYSICAL EXAMINATION: GENERAL: An overweight male, in no apparent distress. VITAL SIGNS: Blood pressure of 150/90, pulse of 70 beats per minute regular, temperature 99, respirations 20, height is 5 feet 7 inches, weight is 205 pounds. HEENT: Head normocephalic. Eyes anicteric with pink conjunctivae. Funduscopy is not possible at this time. Ears, nose, and throat otherwise normal. NECK: Supple. Thyroid gland is normal in size. No carotid bruits or cervical adenopathy. CARDIOPULMONARY: Some adynamic precordium. S1, S2 is rapid and regular. Lungs are clear to auscultation. ABDOMEN: Flat, soft with positive bowel sounds. EXTREMITIES: No peripheral edema. Pulses are +2 bilaterally. LABORATORY DATA: Chemistry shows a BUN of 11, sodium 141, potassium 3.7, chloride 102, CO2 of 27, glucose 387, and creatinine 0.9. His hemoglobin A1c is 12.4% which is quite elevated and indicative of suboptimal metabolic control of his diabetic condition even prior to this admission. His glucose values have ranged from 275 to 284 mg/dL. ASSESSMENT: This is a 47-year-old male with uncontrolled, decompensated type 2 insulin-requiring diabetes, presenting here with metabolic symptoms and supervening hyperglycemic accelerations as expected thereof. There is also underlying obesity, which will contribute the increased insulin resistance and further impaired glucose tolerance thereof. PLAN OF MANAGEMENT: As discussed with the patient and staff, we will modify his current regimen and give him a combination of oral hypoglycemic therapy with metformin given as 850 mg b.i.d. with meals with glipizide given as 10 mg b.i.d. before meals and we will modify the coverage scale to obviate hypoglycemia and detailed orders have been given. We will also add Januvia given as 100 mg once daily in the morning as ordered. We will also modify the coverage scale to obviate hypoglycemia and detailed orders have been given. We will add basal insulin with Levemir to be given as 14 units subcu at bedtime daily to start tonight. We will obtain serial chemistries and supplement accordingly needed. We will also initiate diabetic education and dietary instructions at the time of this admission. We will follow this. Imani Barrientos MD
--- NOTE | 2017-08-24 04:43 | CP.PCM.PN ---
Subjective - Date & Time of Evaluation Date of Evaluation: 08/24/17 Time of Evaluation: 04:40 - Subjective Subjective: Patient is seen, he is feeling better, his sensory changes are not prominent any more. Labs are reviewed, Glucose is controlled after Endocrinology Consult, His BP is controlled His thalamic CVA is small and needs to have stroke precautions to avoid new strokes. He is cleared for discharge. RTC for F/U Objective - Vital Signs/Intake and Output Vital Signs (last 24 hours): Temp Pulse Resp BP Pulse Ox 97.6 F 72 18 131/82 96 08/24/17 00:30 08/24/17 00:30 08/24/17 00:30 08/24/17 00:30 08/24/17 00:30 - Medications Medications: Current Medications Aspirin (Aspirin Chewable) 81 mg PO DAILY [facility] Last Admin: 08/23/17 08:12 Dose: 81 mg Atorvastatin Calcium (Lipitor) 40 mg PO DAILY [facility] Last Admin: 08/23/17 08:12 Dose: 40 mg Clopidogrel Bisulfate (Plavix) 75 mg PO DAILY [facility] Dextrose (Dextrose 50% Inj) 0 ml IV STAT PRN; Protocol PRN Reason: Hypoglycemia Protocol Dextrose (Glutose 15) 0 gm PO ONCE PRN; Protocol PRN Reason: Hypoglycemia Protocol Enoxaparin Sodium (Lovenox) 40 mg SC DAILY@2300 [facility] PRN Reason: Protocol Last Admin: 08/23/17 23:43 Dose: 40 mg Glipizide (Glucotrol) 10 mg PO BIDAC [facility] Last Admin: 08/23/17 16:57 Dose: 10 mg Glucagon (Glucagen Diagnostic Kit) 0 mg IM STAT PRN; Protocol PRN Reason: Hypoglycemia Protocol Hydrochlorothiazide (Microzide) 12.5 mg PO DAILY [facility] Last Admin: 08/23/17 12:07 Dose: 12.5 mg Insulin Detemir (Levemir) 14 units SC HS [facility] Last Admin: 08/23/17 23:44 Dose: 14 units Insulin Human Regular (Humulin R) 0 units SC ACHS [facility] PRN Reason: Protocol Last Admin: 08/23/17 23:44 Dose: Not Given Labetalol HCl (Trandate) 200 mg PO Q6 PRN PRN Reason: Diastolic blood pressure Last Admin: 08/22/17 20:57 Dose: 200 mg Lisinopril (Zestril) 10 mg PO DAILY [facility] Last Admin: 08/23/17 12:06 Dose: 10 mg Metformin HCl (Glucophage) 850 mg PO BIDWM [facility] Last Admin: 08/23/17 16:56 Dose: 850 mg Sitagliptin Phosphate (Januvia) 100 mg PO DAILY [facility] - Labs Labs: 08/22/17 10:21 08/22/17 10:21 PT 12.0 Seconds (9.8-13.1) 08/22/17 10:21 INR 1.1 (0.9-1.2) 08/22/17 10:21 APTT 34.2 Seconds (25.6-37.1) 08/22/17 10:21 Assessment and Plan (1) CVA (cerebral vascular accident) Status: Acute (2) Hyperglycemia Status: Acute (3) Hypertensive urgency Status: Resolved
--- NOTE | 2017-08-24 06:45 | CP.PCM.PN ---
Subjective - Date & Time of Evaluation Date of Evaluation: 08/24/17 Time of Evaluation: 08:15 - Subjective Subjective: No acute events overnight. Patient feeling well. Tingling improved. BP is better controlled. Cleared by Neurology. Endocrinology is also following. Blood glucose is better controlled. Patient would like to go home. Discussed importance of strict BP and Glucose control. Objective - Vital Signs/Intake and Output Vital Signs (last 24 hours): Temp Pulse Resp BP Pulse Ox 98.1 F 67 18 138/83 96 08/24/17 05:24 08/24/17 05:24 08/24/17 05:24 08/24/17 05:24 08/24/17 05:24 - Medications Medications: Current Medications Aspirin (Aspirin Chewable) 81 mg PO DAILY [facility] Last Admin: 08/23/17 08:12 Dose: 81 mg Atorvastatin Calcium (Lipitor) 40 mg PO DAILY [facility] Last Admin: 08/23/17 08:12 Dose: 40 mg Clopidogrel Bisulfate (Plavix) 75 mg PO DAILY [facility] Dextrose (Dextrose 50% Inj) 0 ml IV STAT PRN; Protocol PRN Reason: Hypoglycemia Protocol Dextrose (Glutose 15) 0 gm PO ONCE PRN; Protocol PRN Reason: Hypoglycemia Protocol Enoxaparin Sodium (Lovenox) 40 mg SC DAILY@2300 [facility] PRN Reason: Protocol Last Admin: 08/23/17 23:43 Dose: 40 mg Glipizide (Glucotrol) 10 mg PO BIDAC [facility] Last Admin: 08/23/17 16:57 Dose: 10 mg Glucagon (Glucagen Diagnostic Kit) 0 mg IM STAT PRN; Protocol PRN Reason: Hypoglycemia Protocol Hydrochlorothiazide (Microzide) 12.5 mg PO DAILY [facility] Last Admin: 08/23/17 12:07 Dose: 12.5 mg Insulin Detemir (Levemir) 14 units SC HS [facility] Last Admin: 08/23/17 23:44 Dose: 14 units Insulin Human Regular (Humulin R) 0 units SC ACHS [facility] PRN Reason: Protocol Last Admin: 08/23/17 23:44 Dose: Not Given Labetalol HCl (Trandate) 200 mg PO Q6 PRN PRN Reason: Diastolic blood pressure Last Admin: 08/22/17 20:57 Dose: 200 mg Lisinopril (Zestril) 10 mg PO DAILY [facility] Last Admin: 08/23/17 12:06 Dose: 10 mg Metformin HCl (Glucophage) 850 mg PO BIDWM [facility] Last Admin: 08/23/17 16:56 Dose: 850 mg Sitagliptin Phosphate (Januvia) 100 mg PO DAILY [facility] - Labs Labs: 08/22/17 10:21 08/22/17 10:21 PT 12.0 Seconds (9.8-13.1) 08/22/17 10:21 INR 1.1 (0.9-1.2) 08/22/17 10:21 APTT 34.2 Seconds (25.6-37.1) 08/22/17 10:21 - Constitutional Appears: Well, Non-toxic, No Acute Distress - Head Exam Head Exam: ATRAUMATIC, NORMAL INSPECTION, NORMOCEPHALIC - Eye Exam Eye Exam: EOMI, Normal appearance, PERRL Pupil Exam: PERRL - ENT Exam ENT Exam: Mucous Membranes Moist, Normal Exam - Respiratory Exam Respiratory Exam: Clear to Ausculation Bilateral, NORMAL BREATHING PATTERN. absent: Accessory Muscle Use, Rales, Rhonchi, Wheezes - Cardiovascular Exam Cardiovascular Exam: REGULAR RHYTHM, +S1, +S2. absent: Murmur - GI/Abdominal Exam GI & Abdominal Exam: Soft, Normal Bowel Sounds. absent: Distended, Guarding, Tenderness - Rectal Exam Rectal Exam: Deferred - Neurological Exam Neurological Exam: Alert, Awake, CN II-XII Intact, Normal Gait, Oriented x3 - Psychiatric Exam Psychiatric exam: Normal Affect, Normal Mood - Skin Skin Exam: Dry, Intact, Normal Color, Warm Assessment and Plan (1) CVA (cerebral vascular accident) Assessment & Plan: 47 year old male admitted for hypertensive urgency with left facial tingling and left upper extremity tingling likely due to multiple factors. Patient is obese has severely uncontrolled blood pressure and diabetes. Given HTN and body habitus, he likely has underlying sleep apnea. Would benefit from outpatient polysomnography. BP improved, DM remains uncontrolled but improving Head CT was unremarkable, MRI Brain: acute/subacute lacune identified at the right thalamus. Patient requires strict BP and glycemic control. Started on Lipitor and Aspirin, JULIO CESAR inhibitor, plavix case d/w Dr. Parra Status: Acute (2) Uncontrolled type 2 diabetes mellitus with hyperglycemia Assessment & Plan: Endocrinology consult noted and appreciated. Patient started on Metformin, januvia, glipizide, levemir 14 units qhs HGA1C:12.4. Accuchecks reviewed Julio Cesar/HCTZ for BP control and renal protection no proteinuria diabetic diet Patient can be discharged if cleared by endocrine. Status: Acute (3) DVT prophylaxis Status: Acute (4) Hypertension Assessment & Plan: Lisinopril 10 HCTZ 12.5 mg controlled Status: Acute (5) Obesity (BMI 30.0-34.9) Status: Chronic (6) Hyperlipidemia Assessment & Plan: on statin Status: Acute (7) Uncontrolled hypertension Status: Resolved
[2017-08-24 07:02] LABS: THYROID STIMULATING HORMONE 3.33 mIU/ML (0.46-4.68)
[2017-08-24 07:13] LABS: BLOOD UREA NITROGEN 15 mg/dl (9-20); CALCIUM 9.5 mg/dL (8.4-10.2); CARBON DIOXIDE 29 mmol/L (22-30); CHLORIDE 101 mmol/L (98-107); GFR AFRICAN-AMERICAN > 60; GLUCOSE,RANDOM 104 mg/dL (75-110); POTASSIUM 3.4 MMOL/L (3.6-5.0); SODIUM 140 mmol/l (132-148)
[2017-08-24] MEDS: Insulin Regular 100 units/ml SC SCH ×2 (08:30→12:23)
[2017-08-24 12:40] VITALS: BP 139/93; PULSE 71; TEMP 97.9; O2SAT 98
--- NOTE | 2017-08-24 17:39 | PN ---
DATE: ENDOCRINOLOGY FOLLOWUP NOTE LOCATION: Room 418. SUBJECTIVE: This is a 47-year-old male with recent uncontrolled type 2 insulin-requiring diabetes, presenting here with marked hyperglycemic accelerations and is now being followed closely for metabolic management. His glycemic levels are fluctuating, but improved, but the latest glucose levels today have ranged from 104 to 173 mg/dL. It was plus 367 yesterday in the morning as noted. His latest chemistry showed a BUN of 16, sodium 140, potassium 3.4, chloride 101, CO2 29, glucose 104, and creatinine 1.0. His hemoglobin A1c was reported as 12.4%, which is quite elevated and indicative of suboptimal metabolic control of his diabetic condition with the recent diagnosis of the aforementioned. However, because of his very poor adherence to medications and to medical followups, would opt not to give him any basal insulin for now. I will switch him over to a combination of dual oral hypoglycemic drug therapy as given. We would recommend a combination of glipizide given as 10 mg b.i.d. before meals and b.i.d. before meals as ordered. We will hold off the Levemir therapy for now as discussed with the medical office specialist. We would highly recommend that he follows with a medical doctor or even at the [facility] for outpatient ongoing diabetic management. We will follow. Imani Barrientos MD
== END 2017-08-24 14:04 | disposition home or self-care (01) | DRG 66 ==
LOC: H.ER 09:37 → H.ERHOLD 12:31 → H.TEL 14:48
PROVIDERS: ADMIT Internal Medicine; ATTEND Internal Medicine
PROC: 3E0234Z Introduction of Serum, Toxoid and Vaccine into Muscle, Percutaneous Approach (ICD-10-PCS; principal; 2017-08-22)
DX: I63.9 Cerebral infarction, unspecified (principal); E11.65 Type 2 diabetes mellitus with hyperglycemia; E78.5 Hyperlipidemia, unspecified; E66.09 Other obesity due to excess calories; Z68.30 Body mass index [BMI] 30.0-30.9, adult; Z23 Encounter for immunization; I16.0 Hypertensive urgency; Z71.3 Dietary counseling and surveillance; Z79.4 Long term (current) use of insulin

== ENCOUNTER 2018-07-31 14:47 | Emergency (ER) | payer OTHER ==
[2018-07-31 14:47] VITALS: BMI 29.2
[2018-07-31 14:54] VITALS: TEMP 98.3
[2018-07-31 16:02] LABS: BLOOD UREA NITROGEN 16 mg/dl (9-20); CALCIUM 9.7 mg/dL (8.4-10.2); GFR NON-AFRICAN AMERICAN > 60
--- NOTE | 2018-07-31 18:01 | ED PDOC ---
HPI: Skin/Bite Injury Time Seen by Provider: 07/31/18 15:07 Chief Complaint (Nursing): Abnormal Skin Integrity Chief Complaint (Provider): Insect bite History Per: Patient History/Exam Limitations: no limitations Onset/Duration Of Symptoms: Hrs Current Symptoms Are (Timing): Still Present Location Of Injury: Right: Hand, Left: Neck Quality Of Symptoms: Itching Additional Complaint(s): 48 y/o Male with hx of HTN, HL, DM, CVA in 08/2017 who presents to ED with c/o bug bite to the neck and Right hand. He works in maintenance in a building which is where he noted the bite and itchiness earlier today. He was noted to have elevated BP in triage and he states that his BP meds were recently increased to 100mg PO daily from 50mg PO daily about 2 weeks ago and that his BP is never normal. He denies hx of allergies, SOB, throat tightness, chest pain, dizziness, palpitations, visual changes or SOB. Past Medical History Reviewed: Historical Data, Nursing Documentation, Vital Signs Vital Signs: Last Vital Signs Temp 98.3 F 07/31/18 14:50 Pulse 73 07/31/18 17:43 Resp 17 07/31/18 17:43 BP 175/105 H 07/31/18 17:43 Pulse Ox 98 07/31/18 17:43 - Medical History PMH: CVA, Diabetes, HTN, Hypercholesterolemia, TIA (aug 2017 no deficits) Denies: HIV, Chronic Kidney Disease - Surgical History Surgical History: No Surg Hx - Family History Family History: States: Unknown Family Hx - Living Arrangements Living Arrangements: With Family - Social History Current smoker - smoking cessation education provided: No Ex-Smoker (has not smoked in the last 12 months): No Alcohol: None Drugs: Denies - Home Medications Home Medications: Ambulatory Orders Medication Instructions Recorded Aspirin [Ecotrin] 81 mg PO DAILY #30 tabec 08/24/17 Atorvastatin [Lipitor] 40 mg PO HS #30 tab 08/24/17 Lisinopril [Zestril] 10 mg PO DAILY #30 tab 08/24/17 hydroCHLOROthiazide [Microzide] 12.5 mg PO DAILY #30 cap 08/24/17 metFORMIN [glucOPHAGE] 500 mg PO BID 04/19/18 Hydrocortisone 1% Cream [Cortizone 1 appl TOP BID PRN #1 tube 07/31/18 1% Cream] - Allergies Allergies/Adverse Reactions: Allergies Allergy/AdvReac Type Severity Reaction Status Date / Time No Known Allergies Allergy Verified 07/31/18 14:49 Review of Systems ROS Statement: Except As Marked, All Systems Reviewed And Found Negative Skin: Positive for: Rash (rash on Left neck and Right hand) Physical Exam - Reviewed Nursing Documentation Reviewed: Yes Vital Signs Reviewed: Yes - Physical Exam Appears: Positive for: Well Head Exam: Positive for: ATRAUMATIC Skin: Positive for: Normal Color, Rash (area of raised erythema w/o evidence of drainage) Eye Exam: Positive for: Normal appearance ENT: Positive for: Normal ENT Inspection Neck: Positive for: Normal Cardiovascular/Chest: Positive for: Regular Rate, Rhythm Respiratory: Positive for: Normal Breath Sounds Gastrointestinal/Abdominal: Positive for: Normal Exam Back: Positive for: Normal Inspection Extremity: Positive for: Other (posterior aspect of Right hand with 2 areas of raised erythema w/o drainage. ) Neurologic/Psych: Positive for: Alert, Oriented - Laboratory Results Result Diagrams: 07/31/18 15:48 - ECG O2 Sat by Pulse Oximetry: 98 Medical Decision Making Medical Decision Making: EKG, clonidine 0.2mg PO x 1 EKG @ 15:31: sinus, HR 102, T wave inversion in lateral leads. No change when compared with EKG from 04/2018. 18:00: BP repeated 170s/104. Pt remains w/o c/o GIRON, visual changes, lightheadedness, C/P, SOB or palpitations. Pt deemed stable for d/c to f/u with PMD for further adjustment in anti- hypertensives. He was given a prescription for topical hydrocortisone 1% cream to apply to likely insect bites on Right hand and Left neck. Disposition - Clinical Impression Clinical Impression: Hypertension, Insect bite - Patient ED Disposition Is Patient to be Admitted: No Counseled Patient/Family Regarding: Studies Performed, Diagnosis, Need For Followup - Disposition Referrals: Klaus Chavarria MD [Family Provider] - Disposition: Routine/Home Disposition Time: 18:15 Condition: STABLE Additional Instructions: f/u with your primary care doctor re: adjustment in your blood pressure medications. Can use Benadryl by mouth for bug bite or topical hydrocortisone cream Prescriptions: Hydrocortisone 1% Cream [Cortizone 1% Cream] 1 appl TOP BID PRN #1 tube PRN Reason: Itching / Pruritus Instructions: DASH Diet, High Blood Pressure (DC), Controlling Your Blood Pressure Through Lifestyle Forms: [facility] (Czech), [facility] ED School/Work Excuse Print Language: FAROESE
[2018-07-31 18:15] VITALS: BP 174/98; PULSE 72; RESP 19
[2018-07-31 19:17] VITALS: O2SAT 98
--- NOTE | 2018-08-01 07:10 | CARD ---
APPROVED REPORT Date of service: 07/31/2018 EKG Measurement Heart [id number] <Conclusion> Sinus tachycardia ST & T wave abnormality, consider lateral ischemia Abnormal ECG
== END 2018-07-31 18:26 | disposition home or self-care (01) ==
LOC: H.ER 14:47
DX: S60.561A Insect bite (nonvenomous) of right hand, initial encounter (principal); S10.96XA Insect bite of unspecified part of neck, initial encounter; W57.XXXA Bitten or stung by nonvenomous insect and other nonvenomous arthropods, initial encounter; Y99.0 Civilian activity done for income or pay; E11.9 Type 2 diabetes mellitus without complications; I10 Essential (primary) hypertension